=== PATIENT | male | born 1995 | race Caucasian/White ===

== ENCOUNTER 2016-07-13 14:05 | Emergency (ER) | payer OTHER ==
[~2016-07-13] VITALS: Ht 188 cm; Wt 82.8 kg
[~2016-07-13 14:05] MED LIST: OMEP20CA5 PO; PROM25SU8 PO; PROT40TA PO; SUCR1S PO; ZOFR4TAB3 SL
[2016-07-13 14:13] VITALS: BP 123/90; PULSE 96; RESP 16; TEMP 98.2; O2SAT 97
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
[2016-07-13] MEDS ORDERED: NAPROXEN 500 MG TAB PO ONE (15:15)
[2016-07-13] MEDS ORDERED: TRAM50TA PO (15:44)
[2016-07-13] MEDS ORDERED: NAPR500T PO (15:44)
[2016-07-13] MEDS ORDERED: ACETAMINOPHEN/HYDROcodone 325 MG/5 MG TAB PO ONE (15:45)
--- NOTE | 2016-07-13 15:45 | RADHPO ---
EXAM DATE/TIME: 07/13/2016 15:21 [facility] COMPARISON: No previous studies available for comparison. INDICATIONS : Right ankle pain, fall. MEDICAL HISTORY : None. SURGICAL HISTORY : None. ENCOUNTER: Initial ACUITY: 1 day PAIN SCORE: 0/10 LOCATION: Right lateral ankle FINDINGS: There is a fracture of distal fibula with extension into the malleolus and no significant angulation or displacement. Adjacent soft tissue swelling is seen. CONCLUSION: Distal fibular fracture. William Gastelum MD on July 13, 2016 at 15:43 Board Certified Radiologist. This report was verified electronically.
[2016-07-13 16:20] VITALS: RESP 14
== END 2016-07-13 16:25 | disposition home or self-care (01) ==
LOC: PHEFT 14:05
DX: S82.64XA Nondisplaced fracture of lateral malleolus of right fibula, initial encounter for closed fracture (principal); X58.XXXA Exposure to other specified factors, initial encounter; Y93.44 Activity, trampolining; Y99.8 Other external cause status
CPT/HCPCS: 29515; 73610

== ENCOUNTER 2017-05-12 10:00 | Emergency (ER) | payer OTHER ==
[~2017-05-12] VITALS: Ht 188 cm; Wt 76.0 kg
[~2017-05-12 10:00] MED LIST changes: +NAPR500T2 PO; -OMEP20CA5 PO; -PROM25SU8 PO; -PROT40TA PO; -SUCR1S PO; +TRAM50TA PO; -ZOFR4TAB3 SL
[2017-05-12 10:07] VITALS: BP 138/79; PULSE 81; RESP 16; TEMP 97.7; O2SAT 99
[2017-05-12] MEDS ORDERED: SODIUM CHLOR 0.9% 1000 ML INJ 1,000 ML IV SCH (10:23)
[2017-05-12] MEDS ORDERED: SODIUM CHLORIDE 0.9% FLUSH 10 ML FLUSH IV FLUSH PRN (10:30)
[2017-05-12] MEDS ORDERED: ONDANSETRON HCL 4 MG/2 ML VIAL IVP ONE (10:30)
[2017-05-12] MEDS ORDERED: FAMOTIDINE 20 MG/2 ML VIAL IV PUSH ONE (10:30)
[2017-05-12 10:49] LABS: BLOOD, URINE NEG (NEG); GLUCOSE,URINE NEG (NEG); KETONE, URINE 80 OR GREATER mg/dL (NEG); NITRITE,URINE NEG (NEG); PH, URINE 5.5 (5.0-8.5); URINE LEUKOCYTE ESTERASE NEG (NEG)
[2017-05-12 10:54] LABS: AUTOMATED NEUTROPHIL # 3.7 TH/MM3 (1.8-7.7); BASOPHIL % 0.3 % (0.0-2.0); HEMATOCRIT 48.5 % (39.0-51.0); HEMOGLOBIN 16.5 GM/DL (13.0-17.0); LYMPH % 10.6 % (9.0-44.0); LYMPHOCYTE # 0.5 TH/MM3 (1.0-4.8); MEAN CELL VOLUME 87.3 FL (80.0-100.0); MEAN CORPUSCULAR HEMOGLOBIN 29.7 PG (27.0-34.0); MEAN PLATELET VOLUME 7.9 FL (7.0-11.0); MONO % 10.1 % (0.0-8.0); MONOCYTE # 0.5 TH/MM3 (0-0.9); PLATELET COUNT 211 TH/MM3 (150-450); RED BLOOD COUNT 5.55 MIL/MM3 (4.50-5.90); WHITE BLOOD COUNT 4.7 TH/MM3 (4.0-11.0)
[2017-05-12 10:54] LABS: BILIRUBIN, URINE NEG (NEG); URINE COLOR YELLOW (YELLW/STRAW)
[2017-05-12 10:55] LABS: MUCUS URINE FEW /lpf (OCC); RBC, URINE 0-3 /hpf (0-3); SQUAMOUS EPITHELIAL CELL URINE 0-5 /hpf (0-5); WBC, URINE 0-2 /hpf (0-5)
[2017-05-12 10:58] VITALS: O2SAT 98
[2017-05-12 10:59] LABS: CALCIUM 9.1 MG/DL (8.5-10.1)
[2017-05-12 11:00] LABS: ALBUMIN 4.2 GM/DL (3.4-5.0); BICARBONATE 26.2 MEQ/L (21.0-32.0); INTERNATIONAL NORMALIZED RATIO 1.2 RATIO; PROTHROMBIN TIME - PATIENT 11.7 SEC (9.8-11.6)
[2017-05-12 11:02] LABS: DIRECT BILIRUBIN ADULT 0.2 MG/DL (0.0-0.2)
[2017-05-12 11:03] LABS: CREATININE 1.4 MG/DL (0.60-1.30)
[2017-05-12 11:04] LABS: INDIRECT BILIRUBIN 0.6 MG/DL (0.0-0.8); TOTAL BILIRUBIN ADULT 0.8 MG/DL (0.2-1.0); TOTAL PROTEIN 8.1 GM/DL (6.4-8.2)
[2017-05-12] MEDS ORDERED: SODIUM CHLOR 0.9% 1000 ML INJ 1,000 ML IV ONE (11:15)
[2017-05-12] MEDS ORDERED: IOHEXOL 350 MG/ML 10 ML VIAL (for RAD DIAG) IVCONTRAST ONE (11:27)
--- NOTE | 2017-05-12 11:40 | RADRPT ---
EXAM DATE/TIME: 05/12/2017 11:20 [facility] COMPARISON: CT ABDOMEN & PELVIS W CONTRAST, February 10, 2014, 20:41. INDICATIONS : Epigastric pain, nausea, vomting and diarrhea. IV CONTRAST: 85 cc Omnipaque 350 (iohexol) IV ORAL CONTRAST: No oral contrast ingested. RADIATION DOSE: 6.81 CTDIvol (mGy) MEDICAL HISTORY : Gastroesophageal reflux disease. SURGICAL HISTORY : None. ENCOUNTER: Initial ACUITY: 1 day PAIN SCALE: 7/10 LOCATION: Epigastric. TECHNIQUE: Volumetric scanning of the abdomen and pelvis was performed. Using automated exposure control and ad justment of the mA and/or kV according to patient size, radiation dose was kept as low as reasonably achievable to obtain optimal diagnostic quality images. DICOM format image data is available electro nically for review and comparison. FINDINGS: LOWER LUNGS: The visualized lower lungs are clear. LIVER: Homogeneous density without lesion. There is no dilation of the biliary tree. No calcified gallston es. SPLEEN: Normal size without lesion. PANCREAS: Within normal limits. KIDNEYS: Normal in size and shape. There is no mass, stone or hydronephrosis. ADRENAL GLANDS: Within normal limits. VASCULAR: There is no aortic aneurysm. BOWEL/MESENTERY: The stomach, small bowel, and colon demonstrate no acute abnormality. There is no free intraperitone al air or fluid. ABDOMINAL WALL: Within normal limits. RETROPERITONEUM: There is no lymphadenopathy. BLADDER: No wall thickening or mass. REPRODUCTIVE: Within normal limits. INGUINAL: There is no lymphadenopathy or hernia. MUSCULOSKELETAL: Within normal limits for patient age. CONCLUSION: Negative for fracture or dislocation. Follow up in 7-10 days is suggested if symptoms persist. Jeremy Taylor MD FACR on May 12, 2017 at 11:37 Board Certified Radiologist. This report was verified electronically.
[2017-05-12 13:19] LABS: BICARBONATE 25.4 MEQ/L (21.0-32.0); CALCIUM 7.1 MG/DL (8.5-10.1)
[2017-05-12 13:31] LABS: CALCIUM-PROTEIN CORRECTED 7.7 MG/DL (8.5-10.1); CREATININE 1.1 MG/DL (0.60-1.30); TOTAL PROTEIN 5.9 GM/DL (6.4-8.2)
[2017-05-12] MEDS ORDERED: ZOFR4TAB3 SL (13:54)
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
[2017-05-12 14:38] VITALS: BP 148/60; PULSE 63; RESP 16; O2SAT 95
== END 2017-05-12 14:39 | disposition home or self-care (01) ==
LOC: PHED 10:00
DX: R11.2 Nausea with vomiting, unspecified (principal); E86.0 Dehydration; Z88.0 Allergy status to penicillin
CPT/HCPCS: 74177; 80048; 80076; 81001; 83690; 84155; 85025; 85610; 85730; 96361; 96374; 96375; 99284; J2405; J7030; Q9967